=== PATIENT | male | born 1965 | race Caucasian/White ===

== ENCOUNTER 2025-04-21 11:35 | Emergency (ER) | payer OTHER ==
[2025-04-21 12:07] VITALS: TEMP 98.3; BMI 29.5
[2025-04-21] MEDS ORDERED: ACETAMINOPHEN 500 MG TABLET (FP) ONE (12:43)
[2025-04-21] MEDS ORDERED: IBUPROFEN 600 MG TABLET (FP) PO ONE (12:43)
[2025-04-21] MEDS: ACETAMINOPHEN 500 MG TABLET (FP) PO ONE (12:46)
[2025-04-21] MEDS: IBUPROFEN 600 MG TABLET (FP) PO ONE (12:46)
[2025-04-21 13:52] VITALS: BP 162/73; PULSE 65; RESP 16
== END 2025-04-21 15:55 | disposition home or self-care (01) ==
LOC: FER 11:35
DX: S76.112A Strain of left quadriceps muscle, fascia and tendon, initial encounter (principal); X50.1XXA Overexertion from prolonged static or awkward postures, initial encounter; Y93.33 Activity, BASE jumping
CPT/HCPCS: 73562-TC-LT-FY; 99283-25